=== PATIENT | male | born 1985 | race Hispanic/Latino ===

== ENCOUNTER 2016-10-18 14:37 | Emergency (ER) | payer MEDICAID ==
[~2016-10-18] VITALS: Ht 170.2 cm; Wt 77.0 kg
[~2016-10-18 14:37] MED LIST: NORCO1 TA1 PO
[2016-10-18] MEDS ORDERED: TESSALON PER100 MG PO (15:49)
[2016-10-18] MEDS ORDERED: ZITHROMAX250 MG PO (15:49)
[2016-10-18 16:01] LABS: INFLUENZA A NONE DETECTED (NONE DETECT); INFLUENZA B NONE DETECTED (NONE DETECT)
[2016-10-18 16:19] VITALS: BP 132/76
== END 2016-10-18 16:19 | disposition home or self-care (01) | DRG 203 ==
LOC: ED 14:37
PROVIDERS: Emergency Medicine
DX: J40 Bronchitis, not specified as acute or chronic (principal); F17.210 Nicotine dependence, cigarettes, uncomplicated